=== PATIENT | female | born 1955 | race Hispanic/Latino ===

== ENCOUNTER 2020-01-02 09:46 | Outpatient (CLI) | payer OTHER ==
--- NOTE | 2020-01-02 10:43 | XRay Report ---
Left knee-2 views INDICATION: LEFT KNEE PAIN. COMPARISON: None. IMPRESSION: Intact left knee arthroplasty with large corticated ossific fragment in the region of th e postoperative lateral femoral condyle which may reflect an old fracture. There are also a few small osteochondral bodies within the joint space. Otherwise normal alignment with nothing acute. Signer Name: Miko Kidd MD Signed: 01/02/2020 10:38 AM Workstation Name: [id number]
== END 2020-01-02 09:47 | disposition home or self-care (01) ==
LOC: XRAY 09:46
PROVIDERS: ATTEND Internal Medicine
DX: F41.9 Anxiety disorder, unspecified (principal); M25.562 Pain in left knee; M25.869 Other specified joint disorders, unspecified knee; M25.819 Other specified joint disorders, unspecified shoulder; Z98.890 Other specified postprocedural states